=== PATIENT | male | born 1985 | race Caucasian/White ===

== ENCOUNTER 2017-01-19 17:13 | Emergency (ER) | payer MEDICAID, OTHER ==
--- NOTE | 2017-01-19 18:01 | ED Physician Chart ---
Chief Complaint/HPI - Patient Information Date Seen:: 01/19/17 Time Seen:: 18:00 Chief Complaint:: RT GREAT TOE INJURY History of Present Illness:: This 31-year-old male walked himself outside of his home and had to reenter it through a window. As he jumped to the ground inside of his home he landed in such a way as to cause an injury to his right great toe. This was last evening. The patient describes the pain In his toel as a 20/10 severity. any movement exacerbates the pain. No relieving factors. Patient's past medical history is otherwise unremarkable. Allergies:: Allergies Allergy/AdvReac Type Severity Reaction Status Date / Time No Known Allergies Allergy Verified 01/19/17 17:26 No allergies. Vitals:: Vital Signs - 8 hr 01/19/17 17:28 Temp 98.4 F HR 104 RR 19 BP 154/86 O2 Sat % 96 Review of Systems - Review of Systems General/Constitutional: No fever, No chills, No weight loss, No weakness, No diaphoresis, No edema, No loss of appetite Skin: No skin lesions, No rash Head: No headache, No light-headedness Eyes: No loss of vision, No pain ENT: No earache, No sore throat Neck: No neck pain Cardio Vascular: No chest pain Pulmonary: No SOB, No cough GI: No nausea, No vomiting, No diarrhea G/U: No dysuria, No hematuria Musculoskeletal: Other ( Pain is isolated to the right great toe.) Past Medical History - Past Medical History Past Medical History: No significant medical hx Social History: Non Smoker, Surgical History: None Psychiatricy History: None Family Medical History - Family Member Mother History Unknown: Yes Ethnicity: Living Status: Still Living Physical Exam - Physical Examination General/Constitutional: Awake, Well-developed, well-nourished, Alert, GCS 15, Non-toxic appearing, Ambulatory Head: Atraumatic Eyes: Lids, conjuctiva normal, PERRL Skin: Nl inspection, No rash, No skin lesions, No ecchymosis, No lymphadenopathy ENMT: External ears, nose nl Neck: Nontender, Full ROM w/o pain, No JVD, No nuchal rigidity Respiratory: Nl effort/Exclusion, Clear to Auscultation Cardio Vascular: RRR, No murmur, gallop, rubs, NL S1 S2 Other Cardio Vascular comments:: Adequate pulses in all four extremities. Following reduction, normal capillary refill in the right great toe. Other GI comments:: abdominal exam deferred. : No CVA tenderness Other Extremities comments:: Extremity examination was limited to the area of injury. This was the right great toe. It was markedly tender to palpation and appeared to be dislocated in the dorsal position. No injury to the nail and no lacerations. Labs/Radiology/EKG Results - Lab Results Results: Three views of the right great toe: this was a post reduction series. No evidence of dislocation or fracture. No soft tissue swelling. No radiopaque foreign body. Impression: no acute traumatic findings. Assessment - Assessment General Assessment: PROCEDURE : reduction of a dislocated right great toe distal phalanx. The patient's pain was addressed by a nerve block with administration of 5 mL of 2% lidocaine over both the lateral and medial courses of the digital nerves. Once anesthesia was obtained the toe was reduced with a combination of traction and flexion. When the distal phalanx popped back into its normal position the patient had almost immediate relief of pain. Following the reduction the patient's 20/10 pain was assessed to be a 2 or 2/10. The patient tolerated the procedure well. CASE SUMMARY: This 31 year old male presented with an injury to his RIGHT T GREAT TOE: THE EVENING BEFORE BECAME TO THE ED. HE WAS EXPERIENCING EXTREME PAIN WHICH WAS RELIEVED BY A DIGITAL NERVE BLOCK. ON EXAMINATION THE TOE WAS FELT TO BE DISLOCATED AND WAS REDUCED USING TRACTION AND FLEXION. THIS RESOLVE THE ISSUE FOR THE PATIENT. HE WAS GIVEN A PRESCRIPTION FOR TOWARD ALL 10 DISPENSE SIX, ONE EVERY SIX HOURS NEEDED FOR RESIDUAL PAIN WHEN THE NERVE BLOCK WEARS OFF. HE WAS GIVEN THE USUAL PRECAUTIONS AGAINST MIXING THE NORCO WITH ALCOHOL, DRIVING, AND ACTIVITIES REQUIRING ALERTNESS WITHIN SIX HOURS OF TAKING THE MEDICATION. MDM DDX: INJURY TO RT GREAT TOE: NOT fracture based on negative X-ray. NO Foreign body based On negative x-ray exam. NOT Laceration based on examination. NOT Toenail Avulsion based on physical exam. ED Septic Shock - . Is Septic Shock (SBP<90, OR Lactate>4 mmol\L) present?: No - <6hrs of presentation: Vital Signs: Vital Signs - 8 hr 01/19/17 17:28 Temp 98.4 F HR 104 RR 19 BP 154/86 O2 Sat % 96 Reassessment (Disposition) - Reassessment Reassessment Condition:: Improved - Diagnosis Diagnosis:: Dislocation of the PIP Joint of The RT great toe. - Aftercare/Follow up Instructions Aftercare/Follow-Up Instructions:: Counseled pt regarding lab results/diagnosis & need follow up ED Discharge Plan - Patient Disposition Admit/Discharge/Transfer: PT DISCHARGED HOME Condition at Disposition: Stable Instructions: Toe Dislocation, [id number] Accepting Physician: Parker Rome [Active] - Forms: Work Release Form
[2017-01-19] MEDS ORDERED: Lidocaine 2% 5mL Abboject IVP ONE (18:04)
--- NOTE | 2017-01-20 09:32 | Diagnostic Imaging Report ---
Right first toe (3 views) HISTORY: Pain No acute bony abnormalities. No fractures. Joint spaces appear normal. IMPRESSION: No definite acute bony abnormalities. In the presence of recent trauma and persistent symptoms, a repeat radiograph in 5-7 days may be helpful for detection of a subtle or occult fracture.
== END 2017-01-19 18:45 | disposition home or self-care (01) ==
LOC: ER 17:13
DX: S93.111A Dislocation of interphalangeal joint of right great toe, initial encounter (principal); X58.XXXA Exposure to other specified factors, initial encounter; Y93.89 Activity, other specified; Y92.89 Other specified places as the place of occurrence of the external cause; Y99.8 Other external cause status
CPT/HCPCS: 73660-TC-T5; X6444; Z7502; Z7610

== ENCOUNTER 2019-02-05 09:46 | Emergency (ER) | payer OTHER ==
--- NOTE | 2019-02-05 10:34 | ED Physician Chart ---
ED Chief Complaint/HPI - Patient Information Date Seen:: 02/05/19 Time Seen:: 10:20 Chief Complaint:: dental pain History of Present Illness:: Patient's had pain of tooth 14 for last 5-6 days. Allergies:: Allergies Allergy/AdvReac Type Severity Reaction Status Date / Time No Known Allergies Allergy Verified 02/05/19 09:59 Vitals:: Vital Signs - 8 hr 02/05/19 02/05/19 09:52 10:11 Temp 98 F 98.0 F HR 85 85 RR 18 18 BP 135/84 135/84 O2 Sat % 100 100 Historian:: Patient ED Review of Systems - Review of Systems General/Constitutional: No fever, No chills Skin: No skin lesions Head: No headache Eyes: No loss of vision ENT: No earache, Other (dental pain) Neck: No neck pain Cardio Vascular: No chest pain Pulmonary: No SOB GI: No nausea, No vomiting, No diarrhea G/U: No dysuria Musculoskeletal: No bone or joint pain Endocrine: No polyuria Psychiatric: No prior psych history, No depression, No anxiety Hematopoietic: No bruising Allergic/Immuno: No urticaria Neurological: No syncope, No focal symptoms ED Past Medical History - Past Medical History Past Medical History: No significant medical hx Family History: Diabetes Melitus, HTN Social History: Alcohol, Other (smokes medical marijuana; does not smoke cigarettes ) Surgical History: other (left 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 Grandmother Ethnicity: Hx Family Diabetes: Yes ED Physical Exam - Physical Examination General/Constitutional: Awake, Well-developed, well-nourished, Alert, No distress, GCS 15, Non-toxic appearing, Ambulatory Head: Atraumatic Eyes: Lids, conjuctiva normal, PERRL, EOMI Skin: Nl inspection, No rash, No skin lesions, No ecchymosis, Well hydrated, No lymphadenopathy ENMT: External ears, nose nl, Nasal exam nl Other ENMT comments:: Large dental jeramie tooth 14 with tenderness of adjacent gum Neck: Nontender, Full ROM w/o pain, No JVD, No nuchal rigidity, No bruit, No mass, No stridor Respiratory: Nl effort/Exclusion, Clear to Auscultation, No Wheeze/Rhonchi/Rales Cardio Vascular: RRR, No murmur, gallop, rubs, NL S1 S2 GI: No tenderness/rebounding/guarding, No organomegaly, No hernia, Normal BS's, Nondistended, No mass/bruits, No McBurney tenderness : No CVA tenderness Extremities: No tenderness or effusion, Full ROM, normal strength in all extremities, No edema, Normal digits & nails Neuro/Psych: Alert/oriented, DTR's symmetric, Normal sensory exam, Normal motor strength, Judgement/insight normal, Mood normal, Normal gait, No focal deficits Misc: Normal back, No paraspinal tenderness ED Assessment - Assessment General Assessment: Suggested patient see a dentist as soon as possible and take 3 [id number] ibuprofen 4 times a day for pain. ED Septic Shock - . Is Septic Shock (SBP<90, OR Lactate>4 mmol\L) present?: No - <6hrs of presentation: Vital Signs: Vital Signs - 8 hr 02/05/19 02/05/19 09:52 10:11 Temp 98 F 98.0 F HR 85 85 RR 18 18 BP 135/84 135/84 O2 Sat % 100 100 ED Reassessment (Disposition) - Reassessment Reassessment Condition:: Unchanged - Diagnosis Diagnosis:: Dental pain tooth 14; possible periodontal abscess - Aftercare/Follow up Instructions Aftercare/Follow-Up Instructions:: Refer to Discharge Instructions Medication Prescribed:: Amoxicillin 500 mg 3 times a day for 10 days - Patient Disposition Discharge/Transfer:: Home Condition at Disposition:: Stable, Unchanged
== END 2019-02-05 10:45 | disposition home or self-care (01) ==
LOC: ER 09:46
DX: K08.89 Other specified disorders of teeth and supporting structures (principal)
CPT/HCPCS: Z7502; Z7610